=== PATIENT | female | born 1995 | race Hispanic/Latino ===

== ENCOUNTER 2019-10-04 18:21 | Emergency (ER) | payer MEDICAID ==
--- NOTE | 2019-10-04 19:05 | Event Note ---
ED Screening Note Date of service: 10/04/19 Time: 19:05 ED Screening Note: 24 y o female at 7 weeks sent by obgyn due to vaginal bleeding started today This initial assessment/diagnostic orders/clinical plan/treatment(s) is/are subject to change based on patients health status, clinical progression and re- assessment by fellow clinical providers in the ED. Further treatment and workup at subsequent clinical providers discretion. Patient/guardian urged not to elope from the ED as their condition may be serious if not clinically assessed and managed. Initial orders include: labs us acc eval
[2019-10-04 19:25] LABS: Hematocrit 38.9 % (30.3-42.9); Hemoglobin 13.1 gm/dl (10.1-14.3); Mean Corpuscular HGB Conc 34 % (30-34); Mean Corpuscular Volume 86 fl (79-97); Platelet Count 408 K/mm3 (140-440); Red Blood Count 4.54 M/mm3 (3.65-5.03); Red Cell Distribution Width 15.6 % (13.2-15.2)
[2019-10-04 20:28] LABS: Basophils % (Manual) 0 % (0.0-1.8); Eosinophils % (Manual) 0 % (0.0-4.3); Total Cells Counted 100
[2019-10-04 20:29] LABS: Anisocytosis 1+
== END 2019-10-04 21:50 | disposition left against medical advice (07) ==
LOC: ED 18:21
DX: N93.9 Abnormal uterine and vaginal bleeding, unspecified (principal); Z53.21 Procedure and treatment not carried out due to patient leaving prior to being seen by health care provider
CPT/HCPCS: 36415; 84702; 84703; 85007; 85025; 86900; 86901

== ENCOUNTER 2020-04-13 22:45 | Outpatient (CLI) | payer MEDICAID, OTHER ==
[2020-04-13] MEDS ORDERED: LACTATED RINGERS 1,000 ML IV ONE (23:00)
[2020-04-13 23:25] VITALS: BP 115/73
[2020-04-13 23:59] LABS: Bilirubin,Urine NEG (Negative); Blood,Urine NEG (Negative); Color,Urine Yellow (Yellow); Mucus,Urine FEW /HPF; Protein,Urine <15 mg/dL mg/dL (Negative); Urobilinogen,Urine < 2.0 mg/dL (<2.0)
== END 2020-04-14 02:00 ==
LOC: EEVIPCON 22:45 → TRG 22:45 → APU 22:46 → TRG 04-14 02:00
PROVIDERS: ATTEND Obstetrics & Gynecology
DX: O26.893 Other specified pregnancy related conditions, third trimester (principal); M54.5 Low back pain; R10.9 Unspecified abdominal pain; O47.03 False labor before 37 completed weeks of gestation, third trimester; O99.513 Diseases of the respiratory system complicating pregnancy, third trimester; J45.909 Unspecified asthma, uncomplicated; Z87.891 Personal history of nicotine dependence; Z3A.34 34 weeks gestation of pregnancy
CPT/HCPCS: 59025; 81001; 96360; J7120

== ENCOUNTER 2020-09-23 12:18 | Emergency (ER) | payer MEDICAID, OTHER ==
[2020-09-23 12:39] VITALS: BP 150/93
--- NOTE | 2020-09-23 13:33 | Event Note ---
ED Screening Note ED Screening Note: RUQ that began at 4 AM this morning states she has had issues recurrently over 4 months no fever +n/v no diarrhea PMHx none no allergies to meds LNMP: 2-3 weeks ago This initial assessment/diagnostic orders/clinical plan/treatment(s) is/are subject to change based on patients health status, clinical progression and re- assessment by fellow clinical providers in the ED. Further treatment and workup at subsequent clinical providers discretion. Patient/guardian urged not to elope from the ED as their condition may be serious if not clinically assessed and managed. Initial orders include: labs, UA, US
== END 2020-09-23 14:00 | disposition left against medical advice (07) ==
LOC: ED 12:18
DX: R10.11 Right upper quadrant pain (principal); Z53.21 Procedure and treatment not carried out due to patient leaving prior to being seen by health care provider

== ENCOUNTER 2021-11-28 04:10 | Emergency (ER) | payer MEDICAID ==
[2021-11-28 05:13] LABS: Basophils # (Auto) 0.1 K/mm3 (0.0-0.1); Basophils % (Auto) 0.5 % (0.0-1.8); Eosinophils % (Auto) 0.3 % (0.0-4.3); Hematocrit 31.1 % (30.3-42.9); Hemoglobin 9.5 gm/dl (10.1-14.3); Lymphocytes # (Auto) 1.3 K/mm3 (1.2-5.4); Lymphocytes % (Auto) 8.4 % (13.4-35.0); Mean Corpuscular HGB Conc 31 % (30-34); Mean Corpuscular Volume 73 fl (79-97); Monocytes # (Auto) 0.6 K/mm3 (0.0-0.8); Monocytes % (Auto) 4.2 % (0.0-7.3); Platelet Count 611 K/mm3 (140-440); Red Blood Count 4.26 M/mm3 (3.65-5.03); Red Cell Distribution Width 17.5 % (13.2-15.2)
--- NOTE | 2021-11-28 05:20 | Emergency Department Report ---
ED Abdominal Pain HPI - General Chief Complaint: Abdominal Pain Stated Complaint: ABD PAIN Time Seen by Provider: 11/28/21 05:01 Source: EMS Mode of arrival: Stretcher Limitations: No Limitations - History of Present Illness Initial Comments: Patient is 26 years old female with history of psoriasis. Patient presented to the ER via EMS from home for evaluation of abdominal pain. Patient stated that the abdominal pain started few days ago and is getting worse. She denied any nausea or vomiting. She stated that she is having diarrhea. She denied any fever or chills. MD Complaint: abdominal pain -: days(s) Location: periumbilical Radiation: none Migration to: no migration Quality: sharp Consistency: intermittent Associated Symptoms: denies other symptoms - Related Data Previous Rx's Medication Instructions Recorded Last Taken Type Ibuprofen [Ibuprofen 800] 800 mg PO TID PRN #30 tablet 08/27/18 Unknown Rx Sulfamethoxazole/Trimethoprim 1 each PO BID #20 tablet 08/27/18 Unknown Rx [Bactrim DS TAB] Triamcinolone Aceton 0.1% (Nf) 1 applic TP BID #1 tube 08/27/18 Unknown Rx [Kenalog (NF)] Ferrous Sulfate [Feosol 325 MG tab] 325 mg PO BID #60 tablet 05/17/20 Unknown Rx Ibuprofen [Motrin] 800 mg PO Q8HR PRN #30 tablet 05/17/20 Unknown Rx oxyCODONE /ACETAMINOPHEN [Percocet 1 tab PO Q6HR PRN #40 tablet 05/17/20 Unknown Rx 5/325] Ibuprofen [Motrin] 800 mg PO Q8HR PRN #30 tablet 11/28/21 Unknown Rx oxyCODONE /ACETAMINOPHEN [Percocet 1 tab PO Q6HR PRN #20 tablet 11/28/21 Unknown Rx 5/325] Allergies Allergy/AdvReac Type Severity Reaction Status Date / Time prunes Allergy Hives Verified 11/28/21 11:34 ED Review of Systems ROS: Stated complaint: ABD PAIN Other details as noted in HPI Comment: All other systems reviewed and negative Constitutional: denies: chills, fever Respiratory: denies: cough, shortness of breath, SOB with exertion Cardiovascular: denies: chest pain, palpitations Gastrointestinal: abdominal pain, diarrhea. denies: nausea, vomiting, constipation, hematemesis, melena, hematochezia Musculoskeletal: denies: back pain Neurological: denies: headache, weakness, numbness, paresthesias, confusion ED Past Medical Hx - Past Medical History Previous Medical History?: Yes Hx Hypertension: No Hx Diabetes: No Hx Deep Vein Thrombosis: No Hx Renal Disease: No Hx Sickle Cell Disease: No Hx Seizures: No Hx Asthma: Yes (October 2019) Hx HIV: No - Surgical History Past Surgical History?: Yes Additional Surgical History: CSECTION - Social History Smoking Status: Current Every Day Smoker Substance Use Type: Alcohol, Marijuana - Medications Home Medications: Home Medications Medication Instructions Recorded Confirmed Last Taken Type Ibuprofen [Ibuprofen 800] 800 mg PO TID PRN #30 tablet 08/27/18 Unknown Rx Sulfamethoxazole/Trimethoprim 1 each PO BID #20 tablet 08/27/18 Unknown Rx [Bactrim DS TAB] Triamcinolone Aceton 0.1% (Nf) 1 applic TP BID #1 tube 08/27/18 Unknown Rx [Kenalog (NF)] Ferrous Sulfate [Feosol 325 MG tab] 325 mg PO BID #60 tablet 05/17/20 Unknown Rx Ibuprofen [Motrin] 800 mg PO Q8HR PRN #30 tablet 05/17/20 Unknown Rx oxyCODONE /ACETAMINOPHEN [Percocet 1 tab PO Q6HR PRN #40 tablet 05/17/20 U nknown Rx 5/325] Ibuprofen [Motrin] 800 mg PO Q8HR PRN #30 tablet 11/28/21 Unknown Rx oxyCODONE /ACETAMINOPHEN [Percocet 1 tab PO Q6HR PRN #20 tablet 11/28/21 Unknown Rx 5/325] ED Physical Exam - General Limitations: No Limitations General appearance: alert, in no apparent distress - Head Head exam: Present: atraumatic, normocephalic, normal inspection - Eye Eye exam: Present: normal appearance - ENT ENT exam: Present: normal exam, normal orophraynx, mucous membranes moist - Neck Neck exam: Present: normal inspection, full ROM. Absent: tenderness, meningismus - Respiratory Respiratory exam: Present: normal lung sounds bilaterally - Cardiovascular Cardiovascular Exam: Present: regular rate, normal rhythm, normal heart sounds - GI/Abdominal GI/Abdominal exam: Present: soft, normal bowel sounds. Absent: distended, tenderness, guarding, rebound, rigid, organomegaly, mass, bruit, pulsatile mass, hernia - Extremities Exam Extremities exam: Present: normal inspection, full ROM, normal capillary refill. Absent: tenderness - Back Exam Back exam: Present: normal inspection. Absent: CVA tenderness (R), CVA tenderness (L) - Neurological Exam Neurological exam: Present: alert, oriented X3, CN II-XII intact. Absent: motor sensory deficit - Psychiatric Psychiatric exam: Present: normal mood - Skin Skin exam: Present: warm, intact, erythema ED Course Vital Signs 11/28/21 11/28/21 11/28/21 04:40 06:53 07:22 Temperature 98.6 F Pulse Rate 102 H Respiratory 16 18 Rate Blood Pressure 116/80 Blood Pressure [Left] O2 Sat by Pulse 98 98 100 Oximetry 11/28/21 11/28/21 11/28/21 07:26 11:18 13:02 Temperature 98 F 98.0 F 97.1 F L Pulse Rate 112 H 88 68 Respiratory 18 22 Rate Blood Pressure 106/77 120/54 Blood Pressure 140/82 [Left] O2 Sat by Pulse 100 98 99 Oximetry 11/28/21 11/28/21 11/28/21 13:05 13:10 13:15 Temperature Pulse Rate 71 79 72 Respiratory 20 22 20 Rate Blood Pressure 121/76 124/76 131/84 Blood Pressure [Left] O2 Sat by Pulse 97 97 98 Oximetry 11/28/21 11/28/21 11/28/21 13:30 13:45 14:00 Temperature 97.2 F L Pulse Rate 77 79 70 Respiratory 20 18 18 Rate Blood Pressure 133/85 125/82 127/73 Blood Pressure [Left] O2 Sat by Pulse 98 97 98 Oximetry 11/28/21 11/28/21 14:15 14:30 Temperature Pulse Rate 69 86 Respiratory 18 18 Rate Blood Pressure 123/75 123/82 Blood Pressure [Left] O2 Sat by Pulse 98 98 Oximetry ED Medical Decision Making - Lab Data Result diagrams: 11/28/21 13:10 11/28/21 04:56 - Medical Decision Making Patient is 26 years old female with history of psoriasis. Patient presented to the ER via EMS from home for evaluation of abdominal pain. Patient stated that the abdominal pain started few days ago and is getting worse. She denied any nausea or vomiting. She stated that she is having diarrhea. She denied any fever or chills. Care transferred to Dr. Capellan at 6 AMm. Labs still pending. Critical care attestation.: If time is entered above; I have spent that time in minutes in the direct care of this critically ill patient, excluding procedure time. ED Disposition Clinical Impression: Generalized abdominal pain Ectopic Qualifiers: Location of ectopic : tubal Intrauterine status: without intrauterine Laterality: right Qualified Code(s): O00.101 - Right tubal without intrauterine Disposition: 01 HOME / SELF CARE / HOMELESS Is pt being admited?: No Condition: Good Instructions: Abdominal Pain (ED) Additional Instructions: ACTIVITY: PELVIC REST FOR 1 WEEK DIET: REGULAR Schedule follow-up with Dr. Campoverde in 1 to 2 weeks Patient may call office for an appointment Office #[phone] Prescriptions: Ibuprofen [Motrin] 800 mg PO Q8HR PRN #30 tablet PRN Reason: Pain , Severe (7-10) oxyCODONE /ACETAMINOPHEN [Percocet 5/325] 1 tab PO Q6HR PRN #20 tablet PRN Reason: Pain
[2021-11-28 05:35] LABS: Alanine Aminotransferase 13 units/L (7-56); Albumin 3.8 g/dL (3.9-5); BUN/Creatinine Ratio 23; Blood Urea Nitrogen 18 mg/dL (7-17); Calcium 8.6 mg/dL (8.4-10.2); Hemolysis Index 3
--- NOTE | 2021-11-28 06:45 | Emergency Department Report ---
Blank Doc - Documentation Documentation: 0600-I assumed care from Dr. Alexis Coreas. Labs are pending. He felt the patient would likely need an ultrasound but it was not ordered. I ordered an ultrasound. 0835-labs are still showing pending. Ultrasound is pending. We have called lab and they state that all labs are complete. We have asked them to fax over the results. Sodium, potassium, chloride, and anion gap have not crossed into [facility] [employer]. Sodium is 137. Potassium 4.0. Chloride 102.6. Anion gap was 16. Ultrasound is still pending. Quant was noted. 0915-radiology results were discussed with the radiologist. There is concern for ruptured ectopic. I went back and evaluated the patient. She is still tachycardic. She has diffuse abdominal tenderness, right greater than left. She states that she actually had a normal menstrual cycle in August. She started bleeding before she started having pain. That was at least 3 weeks ago. She started having pain now. She has not seen AUTOMOTIVE GENERAL SALES MANAGER as of yet. She did a test in September and knew that it was positive. Based on a quant of 100, leukocytosis, tachycardia, and an abnormal ultrasound, I suspect that this is consistent with a ruptured ectopic. AUTOMOTIVE GENERAL SALES MANAGER has been paged. Type and screen has been ordered. 0935-AUTOMOTIVE GENERAL SALES MANAGER was repaged. 1000-AUTOMOTIVE GENERAL SALES MANAGER called. Case was discussed. They will plan on laparoscopy.
[2021-11-28] MEDS ORDERED: SODIUM CHLORIDE 0.9% 1000 ML 1,000 ML IV ONE (09:17)
--- NOTE | 2021-11-28 09:18 | Ultrasound Report ---
ULTRASOUND OBSTETRIC INDICATION: New diagnosis of with abdominal pain. TECHNIQUE: Transvaginal. COMPARISON: None available. FINDINGS: GESTATIONAL SAC: No intrauterine gestational sac. YOLK SAC: None seen. EMBRYO/FETUS: None seen. ADNEXA: A right adnexal mass measures 3.8 x 3.6 cm and cannot be from the right ovary. No i nternal vascularity is seen in the structure. Normal right ovary is not clearly identified. The left ovary is not seen. FREE FLUID: There is a complex moderate amount of free fluid in the pelvis as well as free fluid in t he right upper quadrant. ADDITIONAL FINDINGS: None. IMPRESSION: 1. Suspected ruptured right adnexal ectopic . Right ovarian torsion is a less likely conside ration. Please correlate with the clinical findings. CRITICAL RESULT: Time of Discovery (OPERATIONS SYSTEMS SPECIALIST/CDT): 08:05 Time of Communication (OPERATIONS SYSTEMS SPECIALIST/CDT): 08:12 Licensed Practitioner Receiving Report: Dr. Barton Read-Back Performed: Yes. Signer Name: Az Dunn MD Signed: 11/28/2021 9:14 AM Workstation Name: [email or web address]
[2021-11-28] MEDS ORDERED: fentaNYL 100 MCG/2 ML INJ IV ONE (09:37)
--- NOTE | 2021-11-28 10:25 | Short Stay Summary ---
Short Stay Documentation Date of service: 11/28/21 Narrative H&P: 26-year-old -0-0-2 at approximately 4 weeks estimated gestational age presents to the emergency department with vaginal bleeding and pelvic pain. Patient had findings of a positive test upon presentation. Pelvic ultrasound was performed that demonstrated evidence of a right adnexal mass with a measurement of 3.8 cm and evidence of free fluid in the pelvis likely consistent with a ruptured right ectopic . - History Principal diagnosis: Ectopic Past Medical History: other (Asthma; psoriasis) Past Surgical History: Social history: single, smoking - Allergies and Medications Current Medications: Allergies prunes Allergy (Verified 09/23/20 12:34) Hives Home Medications Medication Instructions Recorded Confirmed Last Taken Type Ibuprofen [Ibuprofen 800] 800 mg PO TID PRN #30 tablet 08/27/18 Unknown Rx Sulfamethoxazole/Trimethoprim 1 each PO BID #20 tablet 08/27/18 Unknown Rx [Bactrim DS TAB] Triamcinolone Aceton 0.1% (Nf) 1 applic TP BID #1 tube 08/27/18 Unknown Rx [Kenalog (NF)] Ferrous Sulfate [Feosol 325 MG tab] 325 mg PO BID #60 tablet 05/17/20 Unknown Rx Ibuprofen [Motrin] 800 mg PO Q8HR PRN #30 tablet 05/17/20 Unknown Rx oxyCODONE /ACETAMINOPHEN [Percocet 1 tab PO Q6HR PRN #40 tablet 05/17/20 Unknown Rx 5/325] - Physical exam General appearance: mild distress Integumentary: other (psoriartic lesions) HEENT: Atraumatic Lungs: Clear to auscultation Breasts: deferred Gastrointestinal: guarding, obese - Brief post op/procedure progress note Date of procedure: 11/28/21 Pre-op diagnosis: Right ectopic Post-op diagnosis: same Procedure: Laparoscopy Right salpingectomy Evacuation of hemoperitoneum Anesthesia: CASSANDRA Surgeon: LUCAS ALVAREZ Estimated blood loss: other (600 mL) Pathology: list (Right fallopian tube and right ectopic ) Specimen disposition: to lab Condition: stable - Hospital course Hospital course: The patient was evaluated in the emergency room after presenting with acute onset of pelvic pain. Pelvic ultrasound demonstrated evidence of free fluid in the pelvis and findings of a right adnexal mass likely consistent with an ectopic . The patient had a positive test and no evidence of intrauterine . She was taken for laparoscopy please see operative note for details of surgery. Her postoperative course was uneventful. - Disposition Condition at discharge: Good Disposition: 01 HOME / SELF CARE / HOMELESS Short Stay Discharge Plan Activity: other (Pelvic rest for 1 week) Diet: regular Additional Instructions: Schedule follow-up with Dr. Alvarez in 1 to 2 weeks Patient may call office for an appointment Office #[phone] Prescriptions: Ibuprofen [Motrin] 800 mg PO Q8HR PRN #30 tablet PRN Reason: Pain , Severe (7-10) oxyCODONE /ACETAMINOPHEN [Percocet 5/325] 1 tab PO Q6HR PRN #20 tablet PRN Reason: Pain
--- NOTE | 2021-11-28 10:44 | Anesthesia Day of Surgery ---
Anesthesia Day of Surgery - Day of Surgery Patient Examined: Yes Patient H&P Reviewed: Yes Patient is NPO: Yes
--- NOTE | 2021-11-28 10:44 | Anesthesia Consultation ---
Anesthesia Consult and Med Hx Date of service: 11/28/21 - Airway Anesthetic Teeth Evaluation: Good, Chipped (#10) ROM Head & Neck: Adequate Mental/Hyoid Distance: Adequate Mallampati Class: Class II Intubation Access Assessment: Probably Good - Pulmonary Exam CTA: Yes - Cardiac Exam Cardiac Exam: RRR - Pre-Operative Health Status ASA Pre-Surgery Classification: ASA2, Emergency Proposed Anesthetic Plan: General - Pulmonary Hx Smoking: Yes (1/2 ppd ) Hx Asthma: Yes (states that she does not use an inhaler) Hx Respiratory Symptoms: No SOB: No Hx Sleep Apnea: No - Cardiovascular System Hx Hypertension: No - Central Nervous System Hx Neuromuscular Disorder: No Hx Seizures: No Hx Psychiatric Problems: No - Gastrointestinal Hx Gastroesophageal Reflux Disease: No - Endocrine Hx Renal Disease: No Hx Liver Disease: No Hx Non-Insulin Dependent Diabetes: No Hx Thyroid Disease: No - Hematic Hx Anemia: Yes (Hgb 9.5 today) Hx Sickle Cell Disease: No - Other Systems Hx Alcohol Use: Yes (occ) Hx Substance Use: Yes (occ marijuana) Hx Cancer: No Hx Obesity: Yes (BMI 39) - Additional Comments Anesthesia Medical History Comments: No hx of anesthesia compliations
[2021-11-28] MEDS ORDERED: BUPIVACAINE/PF (0.5%) 5 MG/1 ML 30 ML VIAL INFILTRATI ONE ×3 (10:51→12:38)
[2021-11-28] MEDS ORDERED: KETOROLAC 30 MG/1 ML INJ ONE (10:54)
[2021-11-28] MEDS ORDERED: ONDANSETRON 4 MG/2 ML INJ ONE (10:55)
[2021-11-28] MEDS ORDERED: MIDAZOLAM 2 MG/2 ML INJ ONE (10:55)
[2021-11-28] MEDS ORDERED: SUCCINYLCHOLINE CHLORIDE 200 MG/10 ML INJ MDV ONE (10:55)
[2021-11-28] MEDS ORDERED: ROCURONIUM 50 MG/5 ML INJ IV ONE (10:55)
[2021-11-28] MEDS ORDERED: LIDOCAINE MPF (2%) 20 MG/1 ML VIAL 5 ML ONE (10:55)
[2021-11-28] MEDS ORDERED: propofoL 200 MG/20 ML VIAL IV ONE (10:55)
[2021-11-28] MEDS ORDERED: fentaNYL 100 MCG/2 ML INJ ONE (10:55)
[2021-11-28] MEDS ORDERED: dexAMETHasone 20 MG/5 ML VIAL ONE (10:55)
[2021-11-28] MEDS ORDERED: LACTATED RINGERS 1,000 ML ONE (11:52)
[2021-11-28] MEDS ORDERED: PHENYLEPHRINE/NS 1,000 MCG/10 ML SYRINGE (OR USE) IV ONE (12:00)
--- NOTE | 2021-11-28 12:59 | Operative Report ---
Operative Report Operative Report: Date of surgery: November 28, 2021 Preoperative diagnosis: Right ectopic Postoperative diagnosis: Same as above; hemoperitoneum Procedure: Laparoscopy; right salpingectomy; evacuation of hemoperitoneum Surgeon: Janette Reed M.D. Anesthesia: General endotracheal anesthesia Estimated blood loss: 600 mL Findings: Ruptured right ectopic with significant hemoperitoneum. Pathology: Right fallopian tube and ectopic . Indication: 26-year-old -0-1-2 at approximately 4 weeks estimated gestational age who presents to the emergency department with a complaint of pelvic pain. Pelvic ultrasound demonstrated findings of a right ectopic and hemoperitoneum. Procedure: The patient was taken to the operating room and given general endotracheal anesthesia without complication. The patient is prepped and draped in a normal sterile fashion. A bivalve speculum was placed in the patient's vagina and a single-tooth tenaculum was placed on the anterior lip of the cervix .A uterine acorn manipulator was placed, and the bivalve speculum was then removed. Attention was then turned to the patient's abdomen where a 5 mm infraumbilical skin incision was then made. A Veress needle was placed and peritoneal entry was verified water-filled syringe. Insufflation of the peritoneal cavity was performed with CO2 gas. A 5 mm trocar was placed and the laparoscope was then inserted. The patient was then placed in Trendelenburg. A 10 mm suprapubic skin incision was then made. Under direct visualization a 10 mm trocar was then placed. The fascial incision was closed with a Ashish Alvarado device and 0 Vicryl suture. An additional 5 mm left lateral trocar was also placed. General survey of the patient's abdomen revealed significant hemoperitoneum with organized clot throughout the pelvis. The suction irrigation was placed with evacuation of the hemoperitoneum. The right fallopian tube was significantly enlarged and ruptured consistent with a right ectopic with findings of active bleeding. The fallopian tube was then followed out to the fimbriated end. The graspers were used to elevate the right fallopian tube. The LigaSure device was used to coagulate and transect the mesosalpinx for removal of the right fallopian tube. The ectopic had to be incised in order to facilitate delivery through the 10 mm incision. An Endo Catch bag was placed through the incision and the ectopic was placed in the bag and removed without difficulty. Survey of the left fallopian tube of it revealed a normal tube and ovary. There was no evidence of active bleeding at the conclusion of the case. The trocars were then removed. A 10 mm fascial incision was closed. The pneumoperitoneum was then released. The 5 mm trocar laparoscope was then removed. The skin incisions were then closed with 4-0 Monocryl. The incisions were injected with quarter percent Marcaine. Dressings were applied to the incision. The vaginal instruments were then removed atraumatically. Then successfully extubated and taken to the recovery room. All sponge laps and needle counts were correct x2.
[2021-11-28] MEDS ORDERED: ONDANSETRON 4 MG/2 ML INJ IV PRN (13:11)
[2021-11-28] MEDS ORDERED: HYDROmorphone 1 MG/1 ML INJ IV PRN ×2 (13:11)
[2021-11-28] MEDS ORDERED: HYDROcodone/ACETAMINOPHEN 5-325 MG TAB PO PRN (13:12)
[2021-11-28 13:29] LABS: Hematocrit 25.7 % (30.3-42.9); Hemoglobin 7.7 gm/dl (10.1-14.3)
--- NOTE | 2021-11-28 13:48 | Post Anesthesia Evaluation ---
- Post Anesthesia Evaluation Patient Participated: Yes Airway Patent: Yes Stable Respiratory Function: Yes Nausea/Vomiting: No Temp > 96.8F: Yes Pain Manageable: Yes Adequeate Hydration: Yes Anesthesia Complications: No Block Receding Appropriately: Not Applicable Patient on Ventilator: No
[2021-11-28 14:47] VITALS: BP 123/82
== END 2021-11-28 11:21 | disposition home or self-care (01) ==
LOC: ED 04:10
DX: O00.101 Right tubal pregnancy without intrauterine pregnancy (principal); R10.84 Generalized abdominal pain; Z91.018 Allergy to other foods
CPT/HCPCS: 36415; 36430; 59151; 76817; 80053; 83690; 84702; 84703; 85014; 85018; 85025; 85461; 86850; 86900; 86901; 88305; 96361; 96374; 99284; J0330; J1100; J2250; J2370; J2405; J2704; J2790; J3010; J3490; J7030; J7120; 76801; Q0162; J1885